=== PATIENT | female | born 1980 | race Two or more races ===

== ENCOUNTER 2021-06-11 07:21 | Emergency (ER) | payer OTHER ==
[2021-06-11 07:50] VITALS: BP 124/79; PULSE 111; TEMP 99.4; BMI 32.8
[2021-06-11] MEDS ORDERED: ACETAMINOPHEN 500 MG TABLET (FP) PO ONE (07:57)
[2021-06-11] MEDS ORDERED: ACETAMINOPHEN 325 MG TABLET (FP) ONE (08:05)
== END 2021-06-11 10:07 | disposition home or self-care (01) ==
LOC: JER 07:21
DX: B97.4 Respiratory syncytial virus as the cause of diseases classified elsewhere (principal)
CPT/HCPCS: 87804; 87807; 99283-25; C9803; U0003; U0005

== ENCOUNTER 2023-10-18 16:45 | Emergency (ER) | payer OTHER ==
[2023-10-18 16:51] VITALS: BP 140/78; PULSE 85; RESP 18; TEMP 99.2; BMI 34.4
[2023-10-18] MEDS ORDERED: ACETAMINOPHEN 325 MG TABLET (FP) PO ONE (17:47)
== END 2023-10-18 18:38 | disposition home or self-care (01) ==
LOC: JERFT 16:45
DX: R05.9 Cough, unspecified (principal); R09.81 Nasal congestion; Z20.822 Contact with and (suspected) exposure to COVID-19
CPT/HCPCS: 0241U-QW; 71046-TC-FY; 99284-25